=== PATIENT | male | born 1945 | race Caucasian/White ===

== ENCOUNTER 2023-07-11 16:23 | Outpatient (AMB) | payer MEDICARE, SELFPAY ==
--- NOTE | 2023-07-11 16:24 | AM.OFFWIN_ITS ---
Intake Vital Signs 3 07/11/23 16:28 Height 5 ft 10 in Weight 150 lb BMI 21.5 BP 118/78 Blood Pressure Location Lt brachial Position Sitting Pulse 89 Pulse Source Pulse Oximeter Temp 97.8 F Temp Source Temporal Artery Scan Pulse Oximetry (%) 94 Oxygen Delivery Method Room Air Intake Visit Reasons: EP cyst on RT eye Intake Note: pt is here for right eye cyst on side of face/eye, had for a few days Patient Tobacco Use Status: Never used Tobacco Allergies No Known Allergies Allergy (Mild, Verified 07/11/23 16:25) NONE Do you need a note to return to daycare/school/sports/work: No PFSH Social History Patient Tobacco Use Status: Never used Tobacco Physical Exam Vital Signs: Last Vital Signs Temp 97.8 F 07/11/23 16:28 Pulse 89 07/11/23 16:28 BP 118/78 07/11/23 16:28 Pulse Ox 94 07/11/23 16:28 Oxygen Delivery Method Room Air 07/11/23 16:28 BMI result Body Mass Index 21.5 Skin Other: Right eye: Fleshy erythematous lesion at the corner of the eye. firm Consistency Assessment & Plan Assessment & Plan (1) Infected sebaceous cyst: Code(s): L72.3 - Sebaceous cyst; L08.9 - Local infection of the skin and subcutaneous tissue, unspecified Plan: Warm compress, abx added to the regimen. If sx do not improve, to follow up here. Medications: New 2 cephalexin 500 mg PO BID 14 caps 0RF Coding Level of Care Code Est Pt Level 3 (30384) Diagnoses Infected sebaceous cyst L72.3; L08.9
[2023-07-11 16:28] VITALS: BP 118/78; PULSE 89; TEMP 36.6; O2SAT 94; BMI 21.5
== END 2023-07-11 16:41 | disposition home or self-care (01) ==
PROVIDERS: PCP Internal Medicine; Visit Provider Internal Medicine
DX: L72.3 Sebaceous cyst (principal); L08.9 Local infection of the skin and subcutaneous tissue, unspecified
CPT/HCPCS: 99213

== ENCOUNTER 2023-07-19 14:51 | Outpatient (AMB) | payer MEDICARE, SELFPAY ==
[2023-07-19 14:53] VITALS: BP 108/60; PULSE 82; TEMP 36.6; O2SAT 96; BMI 21.5
--- NOTE | 2023-07-19 14:53 | MHC.OFFWIV ---
Intake Vital Signs 07/19/23 14:53 Height 5 ft 10 in Weight 150 lb BMI 21.5 BP 108/60 Blood Pressure Location Rt brachial Position Sitting Pulse 82 Pulse Source Pulse Oximeter Temp 97.8 F Temp Source Oral Pulse Oximetry (%) 96 Oxygen Delivery Method Room Air Intake Visit Reasons: EP RT eye follow up Intake Note: pt is here for right eye follow up Patient Tobacco Use Status: Never used Tobacco Allergies No Known Allergies Allergy (Mild, Verified 07/19/23 15:14) NONE Medication List - Last Reconciled 07/19/23 by Joe Ang MD albuterol sulfate 90 mcg/actuation inhalation amlodipine 5 mg PO DAILY blood sugar diagnostic (FreeStyle Lite Strips) As directed empagliflozin (Jardiance) 25 mg PO DAILY ipratropium bromide inhalation lancets (FreeStyle Lancets) As directed lisinopril-hydrochlorothiazide 20-12.5 mg 1 tab PO DAILY metformin 850 mg PO TID metoprolol succinate ER 100 mg PO DAILY pravastatin 40 mg PO DAILY Do you need a note to return to daycare/school/sports/work: No HPI EP RT eye follow up HPI Details 78 yr old male presents for a follow up visit. The infection near the eye has improved. He has completed the abx course. He would like the lesion removed. [facility] Social History Patient Tobacco Use Status: Never used Tobacco Physical Exam Vital Signs: Last Vital Signs Temp 97.8 F 07/19/23 14:53 Pulse 82 07/19/23 14:53 BP 108/60 07/19/23 14:53 Pulse Ox 96 07/19/23 14:53 Oxygen Delivery Method Room Air 07/19/23 14:53 BMI result Body Mass Index 21.5 Skin Other: Right eye: Cyst at the corner of the eye. The tenderness and erythema has resolved. Assessment & Plan Assessment & Plan (1) Infected sebaceous cyst: Code(s): L72.3 - Sebaceous cyst; L08.9 - Local infection of the skin and subcutaneous tissue, unspecified Plan: Picture of the swelling shared with the surgeon via tiger connect. He agreed to take a look for possible excision. Consult placed. Orders: Referrals General Surgery Referral L72.3 - Sebaceous cyst Coding Level of Care Code Est Pt Level 3 (61593) Diagnoses Infected sebaceous cyst L72.3; L08.9
== END 2023-07-19 15:22 | disposition home or self-care (01) ==
PROVIDERS: PCP Internal Medicine; Visit Provider Internal Medicine
DX: L72.3 Sebaceous cyst (principal); L08.9 Local infection of the skin and subcutaneous tissue, unspecified
CPT/HCPCS: 99213

== ENCOUNTER 2023-07-26 08:54 | Outpatient (AMB) | payer MEDICARE, SELFPAY ==
--- NOTE | 2023-07-26 08:55 | A.OFFVIS_ITS ---
Vital Signs 07/26/23 09:00 Height 5 ft 10 in Weight 154 lb BMI 22.1 BP 138/64 Blood Pressure Location Rt brachial Position Sitting Pulse 81 Intake Visit Reasons: Inflamed cyst/ Rt upper cheek Intake Note: Patient referred by PCP Dr. Ang for cyst on Rt upper cheek. Present for 2wks. Patient c/o: healing after abx. Data Warehousing Manager Required: No Allergies No Known Allergies Allergy (Mild, Verified 07/19/23 15:14) NONE HPI Comments Details: Patient presents for evaluation of a right face infected sebaceous cyst. It was treated by his medical doctor and presents here for further evaluation. He was given antibiotics and has had marked improvement. The he has no such lesions elsewhere. Chart was reviewed and patient evaluate [facility] Medical History (Updated 07/26/23 @ 09:00 by JIMENA Amin) Rotator cuff arthropathy Gallbladder & bile duct stone with obstruction Surgical History (Updated 07/26/23 @ 09:32 by Gian Fuller MD) Hx of tonsillectomy Social History Patient Tobacco Use Status: Never used Tobacco Physical Exam Vital Signs: Last Vital Signs Pulse 81 07/26/23 09:00 BP 138/64 07/26/23 09:00 BMI result Body Mass Index 22.1 HEENT Other: Patient has a resolving inflamed/infected sebaceous cyst just lateral to the right eye in the upper cheek bone. No evidence of any fluctuance or abscess at this time. Assessment & Plan Assessment & Plan (1) Infected sebaceous cyst of skin: Code(s): L72.3 - Sebaceous cyst; L08.9 - Local infection of the skin and subcutaneous tissue, unspecified Category: Surgical Plan Current plan is continue conservative therapy with renewal of antibiotics and local wound care and for warm compresses. Patient will see me in approximately 2 weeks time and will direct further therapy based on exam at that visit. All questions answered. Coding Level of Care Code New Pt Level 4 (67389) Diagnoses Infected sebaceous cyst of skin L72.3; L08.9
[2023-07-26 09:00] VITALS: BP 138/64; PULSE 81; BMI 22.1
== END 2023-07-26 09:05 | disposition home or self-care (01) ==
PROVIDERS: PCP Internal Medicine; Referring Provider Internal Medicine; Visit Provider Surgery
DX: L72.3 Sebaceous cyst (principal); L08.9 Local infection of the skin and subcutaneous tissue, unspecified
CPT/HCPCS: 99204

== ENCOUNTER → 2023-07-26 08:54 | Outpatient (BNVA) | payer MEDICARE, SELFPAY | PROVIDERS: PCP Internal Medicine; Referring Provider Internal Medicine; Visit Provider Surgery | DX: L72.3 Sebaceous cyst (principal); L08.9 Local infection of the skin and subcutaneous tissue, unspecified | CPT/HCPCS: 99202 ==

== ENCOUNTER 2023-08-02 14:00 | Outpatient (REF) | payer MEDICARE, SELFPAY | END 2023-08-02 14:01 | disposition home or self-care (01) | LOC: HO.LNP 14:00 | PROVIDERS: PCP Internal Medicine; Visit Provider Surgery | DX: L72.3 Sebaceous cyst (principal); L08.9 Local infection of the skin and subcutaneous tissue, unspecified | CPT/HCPCS: 11441; 88304 ==

== ENCOUNTER 2023-08-02 14:00 | Outpatient (AMB) | payer MEDICARE, SELFPAY ==
--- NOTE | 2023-08-02 14:01 | MHC.OFFVIS ---
Vital Signs 08/02/23 14:05 Height 5 ft 10 in Weight 153 lb BMI 22.0 BP 144/65 H Blood Pressure Location Rt brachial Position Sitting Pulse 84 Intake Visit Reasons: 1 week follow up, Inflamed cyst/ Rt upper cheek Intake Note: Patient here for 1wk f/u cyst on Rt upper cheek. Patient c/o: reports improvement with Cephalexin course. Has a few pills left Network Pricing Consultant Required: No Accompanied by: Self / Same As Patient Allergies No Known Allergies Allergy (Mild, Verified 08/02/23 14:05) NONE Medication List - Last Reconciled 08/02/23 by Gian Fuller MD albuterol sulfate 90 mcg/actuation inhalation amlodipine 5 mg PO DAILY blood sugar diagnostic (FreeStyle Lite Strips) As directed cephalexin 500 mg PO Q12H empagliflozin (Jardiance) 25 mg PO DAILY ipratropium bromide inhalation lancets (FreeStyle Lancets) As directed lisinopril-hydrochlorothiazide 20-12.5 mg 1 tab PO DAILY metformin 850 mg PO TID metoprolol succinate ER 100 mg PO DAILY pravastatin 40 mg PO DAILY HPI Comments Details: Patient presents for excision of his left upper face symptomatic cyst. Erythema is completely resolved. We will proceed with the procedure today. Risks, benefits, alternatives of excision of right upper patient cyst were reviewed with the patient and included but not limited to bleeding, infection, recurrence, numbness, pain, scarring and the patient wished to proceed. All questions answered. Consent site. [facility] Medical History Rotator cuff arthropathy Gallbladder & bile duct stone with obstruction Surgical History Hx of tonsillectomy Social History Patient Tobacco Use Status: Never used Tobacco Physical Exam Vital Signs: Last Vital Signs Pulse 84 08/02/23 14:05 BP 144/65 H 08/02/23 14:05 BMI result Body Mass Index 22.0 Office Procedures Excision Details: After appropriate positioning, patient underwent 1 % lidocaine and Betadine prep of an approximally 1 cm x 0.5 cm right upper face cyst using a transverse bi- elliptical incision. Specimen sent to pathology. Wound was irrigated, secured hemostasis, and closed using interrupted inverted dermal 3-0 Vicryl sutures followed by Steri-Strips and sterile dressings. Patient tolerated procedure well. 39078-Lnumgsha face/ear/eyelid/nose/lip/mucous membrane 0.6cm-1cm Procedure code (CPT) selection complete Office Meds lidocaine 1 %-epinephrine 1:100,000 injection solution Performing Provider: Gian Fuller MD Performing Location: [facility] [place] General Surgeons Administered by: Gian Fuller MD on 08/02/23 14:56 Dose Route Admin Location Dispensed Lot Number Expiration Date NDC Chief Analytics Officer 10 mL Infiltration 10 mL Assessment & Plan Assessment & Plan (1) Infected sebaceous cyst of skin: Code(s): L72.3 - Sebaceous cyst; L08.9 - Local infection of the skin and subcutaneous tissue, unspecified Category: Surgical Plan: Patient has been given local instructions including shower in 2 days, ice periodically, Tylenol or Motrin p.r.n. and will see me as directed or p.r.n.. All questions answered. Orders: Orders AMB Excision Today L08.9 - Local infection of the skin and subcutaneous tissue, unspecified, L72.3 - Sebaceous cyst Surgical Today L08.9 - Local infection of the skin and subcutaneous tissue, unspecified, L72.3 - Sebaceous cyst Medications: New lidocaine-epinephrine 1 %-1:100,000 10 mL Infiltration ONCE 30 mL 0RF L08.9 - Local infection of the skin and subcutaneous tissue, unspecified, L72.3 - Sebaceous cyst Coding Level of Care Code Est Pt Level 5 (60733) Diagnoses Infected sebaceous cyst of skin L72.3; L08.9 CPT Codes Face/Ear/Eyelid/Nose/Lip/Mucous Membrane - CPT: 40396-Siasqrmm face/ear/eyelid/nose/lip/mucous membrane 0.6cm-1cm ([id number])
[2023-08-02 14:05] VITALS: BP 144/65; PULSE 84; BMI 22.0
== END 2023-08-02 14:23 | disposition home or self-care (01) ==
PROVIDERS: PCP Internal Medicine; Visit Provider Surgery
DX: L72.0 Epidermal cyst (principal); L08.9 Local infection of the skin and subcutaneous tissue, unspecified
CPT/HCPCS: 11441

== ENCOUNTER 2023-08-09 08:43 | Outpatient (AMB) | payer MEDICARE, SELFPAY ==
[2023-08-09 08:53] VITALS: BP 101/65; PULSE 65; BMI 23.4
--- NOTE | 2023-08-09 08:53 | MHC.OFFVIS ---
Vital Signs 08/09/23 08:53 Height 5 ft 10 in Weight 163 lb BMI 23.4 BP 101/65 Blood Pressure Location Rt brachial Position Sitting Pulse 65 Intake Visit Reasons: s/p exc EIC/ Rt upper cheek Intake Note: Patient here s/p exc on Rt upper cheek. Reports incision healing well. Patient c/o: redness. Swelling improving. Foreign Exchange Position Clerk Required: No Accompanied by: Self / Same As Patient Allergies No Known Allergies Allergy (Mild, Verified 08/09/23 08:55) NONE HPI Comments Details: Patient presents for follow-up. He has no wound issues or complaints. Pathology is benign [facility] Medical History Rotator cuff arthropathy Gallbladder & bile duct stone with obstruction Surgical History Hx of tonsillectomy Social History Patient Tobacco Use Status: Never used Tobacco Physical Exam Vital Signs: Last Vital Signs Pulse 65 08/09/23 08:53 BP 101/65 08/09/23 08:53 BMI result Body Mass Index 23.4 HEENT Other: Incision clean dry and intact healing very well Assessment & Plan Assessment & Plan (1) Postop check: Code(s): Z09 - Encounter for follow-up examination after completed treatment for conditions other than malignant neoplasm Category: Surgical Plan Patient has been given local instructions, and will follow-up p.r.n.. All questions answered. Coding Level of Care Code Global (09110) Diagnoses Postop check Z09
== END 2023-08-09 09:00 | disposition home or self-care (01) ==
PROVIDERS: PCP Internal Medicine; Visit Provider Surgery
DX: Z09 Encounter for follow-up examination after completed treatment for conditions other than malignant neoplasm (principal)
CPT/HCPCS: 99024

== ENCOUNTER → 2023-08-09 08:43 | Outpatient (BNVA) | payer MEDICARE, SELFPAY | PROVIDERS: PCP Internal Medicine; Visit Provider Surgery | DX: Z09 Encounter for follow-up examination after completed treatment for conditions other than malignant neoplasm (principal) | CPT/HCPCS: 99212 ==

== ENCOUNTER 2024-11-16 21:33 | Emergency (ER) | payer MEDICARE, SELFPAY ==
--- NOTE | ~2024-11-16 | XR_ITS ---
CLINICAL HISTORY: trauma infection 3 view right great toe Comparison: None provided Findings: There is transversely oriented lucency and irregularity along the distal aspect of 1st proximal phalanx. In addition, there is step-off and contour irregularity along medial aspect of base of the 1st distal phalanx. Associated soft tissue edema. Right foot alignment is otherwise maintained in anatomic. No radiodense soft tissue foreign bodies. Moderate right foot osteoarthritis. Impression: 1. Constellation of findings most consistent with acute intra-articular fractures involving proximally and distal phalanges of the great toe as detailed above. 2. Overlying soft tissue edema. This document has been electronically signed by: Elias Ribeiro MD on 11/17/2024 00:29:22
[2024-11-16 21:36] VITALS: BP 166/74; PULSE 66; RESP 20; TEMP 36.4; O2SAT 95; BMI 22.1
[2024-11-16 21:55] LABS: MANUAL DIFF FLAG NO
[2024-11-16 21:56] LABS: Hematocrit 45.6 % (42.0-52.0); Hemoglobin 14.9 g/dl (14.0-18.0); Imm Gran Abs Auto 0.02 X10*3/uL (0.00-0.03); Imm Gran Pct Auto 0.3 % (0.0-0.4); Lymphocytes Absolute Auto 2.0 X10*3/uL (1.2-4.9); Mean Corpuscular HGB Conc 32.7 g/dl (31.0-36.0); Mean Corpuscular Hemoglobin 28.7 pg (27.0-33.0); Mean Corpuscular Volume 87.7 fL (80.0-98.0); NRBC Abs Auto 0.000 X10*3/uL (0.0-0.012); NRBC Pct Auto 0.0 /100WBC (0.0-0.2); Platelet Count 227 X10*3/uL (160-400); Red Blood Count 5.20 X10*6/uL (4.60-5.80); White Blood Count 7.8 X10*3/uL (4.8-10.8)
[2024-11-16 22:09] LABS: Alanine Aminotransferase 14 U/L (0-40); Albumin Level 4.1 g/dL (3.5-5.0); Alkaline Phosphatase 58 U/L (39-117); Anion Gap 12 (12-20); Aspartate Amino Transferase 21 U/L (5-37); Blood Urea Nitrogen 12 mg/dL (9-16); Calcium 8.7 mg/dL (8.4-10.2); Carbon Dioxide 28 mmol/L (22-29); Chloride 108 mmol/L (96-108); Creatinine Clr Calc Pharmacy 68.4; Estimated Glomerular Filt Rate > 60; Potassium 3.9 mmol/L (3.3-5.1); Sodium 144 mmol/L (135-145); Total Protein 6.9 g/dL (6.5-8.0)
[2024-11-16 22:22] VITALS: BP 139/61; PULSE 68; RESP 18; TEMP 36.2; O2SAT 95
--- NOTE | 2024-11-17 00:34 | ED.GENADULT ---
HPI - General Adult General Chief complaint: Skin/Abscess/Foreign Body Stated complaint: wound big toe/rt ft-diabetes Time Seen by Provider: 11/16/24 23:05 Source: patient Limitations: no limitations History of Present Illness ED Provider: Shannon Roca PA-C HPI narrative: 79-year-old male with a history of hypertension, diabetes, peripheral neuropathy, COPD, hyperlipidemia who presents with concern for infection of right great toe. Patient states he stubbed his foot under a piece of sheet rock yesterday. Throughout the day, he developed discoloration, swelling, the top of the toe is now purple and swollen. Denies fever. Denies pain. Related Data Home Medications ?Medication ?Instructions ?Recorded ?Confirmed albuterol sulfate 90 mcg/actuation inhalation 07/11/23 08/09/23 aerosol inhaler amlodipine 5 mg tablet 5 mg PO DAILY 07/11/23 08/09/23 blood sugar diagnostic (FreeStyle #10 ea 07/11/23 08/09/23 Lite Strips) empagliflozin 25 mg tablet 25 mg PO DAILY 07/11/23 08/09/23 (Jardiance) lancets 28 gauge (FreeStyle #100 ea 07/11/23 08/09/23 Lancets) lisinopril 20 1 tab PO DAILY 07/11/23 08/09/23 mg-hydrochlorothiazide 12.5 mg tablet metformin 850 mg tablet 850 mg PO TID 07/11/23 08/09/23 metoprolol succinate 100 mg 100 mg PO DAILY 07/11/23 08/09/23 tablet,extended release 24 hr pravastatin 40 mg tablet 40 mg PO DAILY 07/11/23 08/09/23 ipratropium bromide 0.02 % inhalation 07/19/23 08/09/23 solution for inhalation Previous Rx's ?Medication ?Instructions ?Recorded doxycycline hyclate 100 mg capsule 100 mg PO BID #13 caps 11/17/24 Allergies Allergy/AdvReac Type Severity Reaction Status Date / Time No Known Allergies Allergy Mild NONE Verified 11/16/24 21:38 Review of Systems Review of Systems: Yes all other systems are reviewed and are negative Constitutional: Constitutional: Denies fatigue and Denies fever(s) Cardiovascular: Cardiovascular: Denies chest pain and Denies dyspnea Respiratory: Respiratory: Denies dyspnea Musculoskeletal: Musculoskeletal: Denies arthralgias and Reports joint swelling Endocrine: Endocrine: Denies fatigue [facility] Past Medical History Attestation statement: The following information was validated with the patient. Medical History Rotator cuff arthropathy Gallbladder & bile duct stone with obstruction Surgical History Hx of tonsillectomy Social History Social History Patient Tobacco Use Status: Never used Tobacco Smoked in Last 30 Days: Yes Advance Directives: No Advance Directives Information Provided: No Physical Exam ED Vital Signs: Vital Signs - 24 hr 11/16/24 21:36 11/16/24 22:22 11/17/24 00:47 Temperature 97.5 F 97.1 F 97.8 F Pulse Rate 66 68 60 Respiratory Rate 20 18 Blood Pressure 166/74 H 139/61 131/55 L Pulse Oximetry 95 95 93 Oxygen Delivery Method Room Air Room Air Room Air BMI result Body Mass Index 22.1 Const Other: Alert well-appearing Orientation/consciousness: patient oriented x3 Resp Effort & Inspection: normal respiratory effort Cardio Other: Normal peripheral perfusion Skin Other: Warm dry no rash Neuro General: patient oriented x3, gait normal, no focal motor deficits and CN's II-XI intact bilaterally Extrem Other: Large soft hematoma noted over the dorsum of the right great toe, nail bed intact, nonpainful, associated ecchymosis adjacent that is spans over the 2nd digit Psych Other: Cooperative Procedures Abscess I/D Site: foot (Right great toe hematoma that has superficial) Side (if applicable): right Sedation/analgesia: none Technique: incised with blade Amount of fluid expressed (mL): 5 Sent for culture/gram staining?: No Irrigation: No Packing used?: none Orthopedic Splinting/Casting Injury #1: Side: right Lower Extremity Injury Location: toe Lower Extremity Immobilizer: joanie tape Other Orthopedic Equipment: other (Postop shoe) Medical Decision Making Medical Decision Making MDM Narrative: 79-year-old male with a history of hypertension, diabetes, peripheral neuropathy, COPD, hyperlipidemia who presents with concern for infection of right great toe. Patient states he stubbed his foot under a piece of sheet rock yesterday. Throughout the day, he developed discoloration, swelling, the top of the toe is now purple and swollen. Denies fever. Denies pain. Problem: Diabetes with neuropathy History: Per patient I have considered the following differential diagnoses: Fracture, dislocation, open fracture, cellulitis, abscess, paronychia, hematoma Plan: Screening labs were ordered from triage, I added on an x-ray, the patient does have fracture of the right great toe. There is no overlying laceration or puncture, the contusion of the tissue caused bleeding, creating a hematoma. It was drained at bedside, I joanie tape the toes, he will be placed in a postop shoe. I am covering with the antibiotics due to his diabetes. I have independently reviewed the following tests: Labs: No leukocytosis, not anemic, no electrolyte abnormality X-ray right great toe:Findings: There is transversely oriented lucency and irregularity along the distal aspect of 1st proximal phalanx. In addition, there is step-off and contour irregularity along medial aspect of base of the 1st distal phalanx. Associated soft tissue edema. Right foot alignment is otherwise maintained in anatomic. No radiodense soft tissue foreign bodies. Moderate right foot osteoarthritis. Impression: 1. Constellation of findings most consistent with acute intra-articular fractures involving proximally and distal phalanges of the great toe as detailed above. 2. Overlying soft tissue edema. Lab Data 11/16/24 21:51 11/16/24 21:51 Labs: Lab Results 11/16/24 Range/Units 21:51 WBC 7.8 (4.8-10.8) X10*3/uL RBC 5.20 (4.60-5.80) X10*6/uL Hgb 14.9 (14.0-18.0) g/dl Hct 45.6 (42.0-52.0) % MCV 87.7 (80.0-98.0) fL MCH 28.7 (27.0-33.0) pg MCHC 32.7 (31.0-36.0) g/dl RDW 15.1 (11.0-16.0) % Plt Count 227 (160-400) X10*3/uL MPV 9.5 (9.4-12.4) fL Immature Gran % (Auto) 0.3 (0.0-0.4) % Neut % (Auto) 60.7 (45-73) % Lymph % (Auto) 26.1 (20-40) % [facility] % (Auto) 10.8 (2-11) % Eos % (Auto) 1.5 (0-4) % Baso % (Auto) 0.6 (0-2) % Lymph # (Auto) 2.0 (1.2-4.9) X10*3/uL [facility] # (Auto) 0.8 (0.1-1.2) X10*3/uL Eos # (Auto) 0.1 (0.0-0.4) X10*3/uL Baso # (Auto) 0.1 (0.0-0.2) X10*3/uL Abs Immat Gran (auto) 0.02 (0.00-0.03) X10*3/uL Absolute Neuts (auto) 4.7 (2.0-8.3) x10*3/uL Absolute Nucleated RBC 0.000 (0.0-0.012) X10*3/uL Nucleated RBC % (auto) 0.0 (0.0-0.2) /100WBC Sodium 144 (135-145) mmol/L Potassium 3.9 (3.3-5.1) mmol/L Chloride 108 (96-108) mmol/L Carbon Dioxide 28 (22-29) mmol/L Anion Gap 12 (12-20) BUN 12 (9-16) mg/dL Creatinine 0.87 (0.5-1.4) mg/dL Estim Creat Clear Calc 68.4 Estimated GFR > 60 Random Glucose 106 (60-115) mg/dL Calcium 8.7 (8.4-10.2) mg/dL Total Bilirubin 0.3 (0.0-1.0) mg/dL AST 21 (5-37) U/L ALT 14 (0-40) U/L Alkaline Phosphatase 58 (39-117) U/L Total Protein 6.9 (6.5-8.0) g/dL Albumin 4.1 (3.5-5.0) g/dL Discharge Plan Discharge Clinical Impression: Closed fracture of right great toe, Hematoma of right great toe Patient Disposition: Home, Self-Care Instructions: Toe Fracture (ED), Hematoma (ED), Post Surgical Shoe (ED) Additional Instructions: The x-ray revealed that you have fracture of the right big toe. The overlying swelling is called a hematoma, it was drained at bedside. See home care instructions. Keep the sterile dressing in place for 2 days. Keep it clean and dry, you can use topical bacitracin, prior to covering the wound. Use the postop shoe as directed, this will offer stability to the fracture. Take the doxycycline as directed, this is an antibiotic to help prevent infection. I am providing you with a contact for our orthopedic service, call to make a follow up appointment. Prescriptions: New doxycycline hyclate 100 mg capsule 100 mg PO BID Qty: 13 0RF No Action ipratropium bromide 0.02 % solution inhalation albuterol sulfate 90 mcg/actuation HFA aerosol inhaler inhalation amlodipine 5 mg tablet 5 mg PO DAILY metformin 850 mg tablet 850 mg PO TID Jardiance 25 mg tablet 25 mg PO DAILY metoprolol succinate 100 mg tablet extended release 24 hr 100 mg PO DAILY pravastatin 40 mg tablet 40 mg PO DAILY (DME) lancets [FreeStyle Lancets] 28 gauge misc See Rx Instructions .ROUTE DAILY Qty: 100 Rx Instructions: As directed (DME) FreeStyle Lite Strips Strip See Rx Instructions .ROUTE .MEDSUPPLY Qty: 10 Rx Instructions: As directed lisinopril-hydrochlorothiazide 20-12.5 mg tablet 1 tab PO DAILY Referrals: Fredi Vásquez MD [Physician, Orthopedics] Referral Note: right intra-articular fractures involving proximally and distal phalanges of the great toe Print Language: French
[2024-11-17 00:47] VITALS: BP 131/55; PULSE 60; TEMP 36.6; O2SAT 93
[2024-11-17 01:22] VITALS: BP 131/55; PULSE 60; RESP 16; TEMP 36.6; O2SAT 93
== END 2024-11-17 01:23 | disposition home or self-care (01) ==
PROVIDERS: Emergency Provider Emergency Medicine; PCP Internal Medicine
DX: S92.401A Displaced unspecified fracture of right great toe, initial encounter for closed fracture (principal); S90.111A Contusion of right great toe without damage to nail, initial encounter; M79.671 Pain in right foot; X58.XXXA Exposure to other specified factors, initial encounter; Y93.9 Activity, unspecified; Y92.9 Unspecified place or not applicable; Y99.8 Other external cause status; Z79.899 Other long term (current) drug therapy
CPT/HCPCS: 10140; 36415; 73660; 80053; 85025; 99283; 99284

== ENCOUNTER → 2024-11-16 23:06 | Outpatient (BNV) | payer MEDICARE, SELFPAY | PROVIDERS: Emergency Provider Emergency Medicine; PCP Internal Medicine; Visit Provider Radiology Diagnostic Radiology | DX: S92.491A Other fracture of right great toe, initial encounter for closed fracture (principal); W22.09XA Striking against other stationary object, initial encounter | CPT/HCPCS: 73660 ==